=== PATIENT | female | born 1935 | race Caucasian/White ===

== ENCOUNTER 2022-12-04 23:49 | Inpatient (IN) | payer MEDICARE, OTHER ==
[~2022-12-04] VITALS: Ht 144.8 cm; Wt 49.9 kg
[2022-12-05] MEDS ORDERED: METO25TA4 PO (10:53)
[2022-12-05] MEDS ORDERED: LOSA100T31 PO (10:53)
[2022-12-05] MEDS ORDERED: METF-440 PO (10:53)
[2022-12-05] MEDS ORDERED: DEXL60CA3 PO (10:53)
[2022-12-05] MEDS ORDERED: APIX2.5T PO (10:53)
[2022-12-05] MEDS ORDERED: BLOOD SUGAR DIAGNOSTIC 1 EACH STRIP IN ONE (15:00)
[2022-12-05] MEDS ORDERED: MAG HYDROX/AL HYDROX/SIMETH 30 ML UDC PO PRN (15:00)
[2022-12-05] MEDS ORDERED: clonazePAM 0.5 MG TABLET PO PRN (15:00)
[2022-12-05] MEDS ORDERED: ACETAMINOPHEN 325 MG TABLET PO PRN (15:00)
[2022-12-05] MEDS ORDERED: MAGNESIUM HYDROXIDE 30 ML UDC PO PRN (15:00)
[2022-12-05] MEDS ORDERED: FOLI0.4T6 PO (15:46)
[2022-12-05] MEDS ORDERED: DONE5TAB34 PO (15:46)
[2022-12-05] MEDS ORDERED: NAPR-1009 PO (15:46)
[2022-12-05 16:00] VITALS: BP 156/77
--- NOTE | 2022-12-05 16:39 | NUR ---
Pt BS 263 ,LEFT MESSAGE FOR ABEL HO .
[2022-12-05] MEDS ORDERED: DEXTROSE 50%-WATER 50 ML DISP.SYRIN IV PRN (18:30)
[2022-12-05 19:00] VITALS: BP 148/76
--- NOTE | 2022-12-05 19:12 | NUR ---
Pt BS 263 ,LEFT MESSAGE FOR HARSHIL HO .
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
[2022-12-05 20:38] VITALS: BP 148/76
[2022-12-05 21:07] LABS: CHOLESTEROL 183 mg/dL (<200); HDL CHOLESTEROL 79 mg/dL (40-60); LDL 87 mg/dL (0-99); TRIGLYCERIDES 67 mg/dL (30-150)
[2022-12-05] MEDS: BLOOD SUGAR DIAGNOSTIC 1 EACH STRIP IN SCH (22:04)
[2022-12-05] MEDS: INSULIN REGULAR, HUMAN 100 UNIT/ML 3 ML VIAL SQ PRN (22:16)
[2022-12-06] MEDS: PANTOPRAZOLE 40 MG TABLET.DR PO SCH (07:44)
[2022-12-06] MEDS: BLOOD SUGAR DIAGNOSTIC 1 EACH STRIP IN SCH ×4 (07:45→21:33)
[2022-12-06] MEDS: INSULIN REGULAR, HUMAN 100 UNIT/ML 3 ML VIAL SQ PRN ×5 (07:47→21:39)
[2022-12-06 08:00] VITALS: BP 138/65
[2022-12-06 08:15] LABS: ALBUMIN 2.6 g/dL (3.4-5.0); BILIRUBIN,TOTAL 0.2 mg/dL (0.2-1.0); CALCIUM, SERUM 8.9 mg/dL (8.5-10.1); CREATININE 0.8 mg/dL (0.6-1.3); POTASSIUM 3.5 mmol/L (3.5-5.1); TOTAL PROTEIN, SERUM 5.9 g/dL (6.4-8.2)
[2022-12-06] MEDS: DONEPEZIL 5 MG TABLET PO SCH (08:20)
[2022-12-06] MEDS: APIXABAN 2.5 MG TABLET PO SCH ×2 (08:20→16:41)
[2022-12-06 08:21] LABS: THYROID STIMULATING HORMONE 0.966 uIU/mL (0.358-3.74)
[2022-12-06] MEDS: FOLIC ACID 1 MG TABLET PO SCH (08:21)
[2022-12-06] MEDS: LOSARTAN POTASSIUM 50 MG TABLET PO SCH (08:21)
--- NOTE | 2022-12-06 08:49 | NUR ---
BS is 154 and pt., refused for 2 units of Regular Insulin. Pt. was explained on the importance and still refusing.
--- NOTE | 2022-12-06 10:10 | NUR ---
RN Notes: Received pt. awake in bed, Malian speaking, no distress and no agitation noted. Ate 25% for breakfast and compliant on meds. Pt. seen by Adolfo psychological anthropologist. Encouraged to verbalize feelings and encouraged to attend group activity. Needs attended and will continue to monitor for safety.
--- NOTE | 2022-12-06 11:15 | NUR ---
SHARAD Initial Discharge Plan: Patient currently resides at home alone located at [address] [place] [address]; ([phone]). SHARAD will contact pt's son Miles ([phone]) to gather collateral and discuss treatment plan. SHARAD will work with the MD, family, and treatment team.
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
--- NOTE | 2022-12-06 11:16 | NUR ---
Treatment Plan: Pt refused to sign treatment plan and was suspicious.
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
[2022-12-06 16:00] VITALS: BP 150/70
--- NOTE | 2022-12-06 19:26 | NUR ---
GPS APPLICATION SUPPORT DEVELOPER NOTE: RCVD IN BED , AWAKE , CALM AT THIS TIME, DENIES PAIN OR DISCOMFORT AT THIS TIME. BREATHING EVEN AND UNLABORED, NO S/SX OF RES. DISTRESS OR DISCOMFORT AT THIS TIME. WILL CONT TO MONITOR PT'S SAFETY AND ANTICIPATE NEEDS.
[2022-12-06 20:19] VITALS: BP 137/56
[2022-12-06] MEDS: OLANZAPINE 2.5 MG TABLET PO SCH (21:33)
--- NOTE | 2022-12-06 22:42 | NUR ---
GPS COPY DIRECTOR NOTE PT MED COMPLIANT, ACCU CHECK 2200: BS 150, REGULAR INSULIN GIVEN ORDERED, TOLERATED. PT DENIES ANY PAIN OR DISCOMFORT AT THIS TIME. WILL CONT TO MONITOR Q 15 MINS PT'S BEHAVIOR AND SAFETY AND WILL ANTICIPATE NEEDS, ORIENTED PT WITH USE OF CALL LIGHT FOR ANY NEEDS/ OR ASSISTANCE.
--- NOTE | 2022-12-07 00:25 | NUR ---
GPS AUTOCAD DRAFTSMAN NOTE PT SLEEPING, EASY TO AROUSE, BREATHING EVEN AND UNLABORED, SAFETY AND COMFORT MEASURES NOTED. WILL CONTINUE TO MONITOR Q 15 MINS PT'S BEHAVIOR AND SAFETY.
--- NOTE | 2022-12-07 03:16 | NUR ---
GPS ORACLE EBS DEVELOPER NOTE PT SLEEPING, EASY TO AROUSE, NO S/SX OF RESP.DISTRESS. CONT TO MONITOR Q15 MINS - BEHAVIOR AND SAFETY.
--- NOTE | 2022-12-07 06:05 | NUR ---
GPS MILK DELIVERY DRIVER NOTE PT STILL SLEEPING AT THIS TIME, EASY TO AROUSE. NO S/SX OF RESP.DISTRESS, PT ABLE TO MAKE HIS NEEDS KNOW, ABLE TO VERBALIZED NEEDS. TOLERATED HER MEDS DURING SHIFT. SAFETY MEASURES OBSERVED. WILL ENDORSE CONTINUITY OF CARE TO AM ONCOMING NURSE.
[2022-12-07] MEDS: BLOOD SUGAR DIAGNOSTIC 1 EACH STRIP IN SCH ×4 (07:36→21:32)
[2022-12-07 08:00] VITALS: BP 158/81
[2022-12-07] MEDS: INSULIN REGULAR, HUMAN 100 UNIT/ML 3 ML VIAL SQ PRN ×3 (08:06→16:40)
[2022-12-07] MEDS: LOSARTAN POTASSIUM 50 MG TABLET PO SCH (08:19)
[2022-12-07] MEDS: FOLIC ACID 1 MG TABLET PO SCH (08:19)
[2022-12-07] MEDS: DONEPEZIL 5 MG TABLET PO SCH (08:19)
[2022-12-07] MEDS: PANTOPRAZOLE 40 MG TABLET.DR PO SCH (08:19)
[2022-12-07] MEDS: APIXABAN 2.5 MG TABLET PO SCH ×2 (08:20→16:19)
--- NOTE | 2022-12-07 09:30 | NUR ---
RN Notes: Received pt. awake in bed, responsive to staffs and pleasant upon approached. Pt. ate 25% for breakfast and compliant on meds. BS is 162 and 3 units of Humulin R given. Encouraged to verbalize feelings and motivated to attend group activities. Pt. seen watching tv in the dining room. Needs attended and will continue to monitor for safety.
--- NOTE | 2022-12-07 10:30 | NUR ---
Notified Dr. Bray regarding the consult.
[2022-12-07 16:00] VITALS: BP 143/55
--- NOTE | 2022-12-07 19:55 | NUR ---
GPS PESTICIDE APPLICATOR NOTE: RECEIVED PT AWAKE .ALERT AND ORIENTED X2.BREATHIGN EVEN AND NON-LABORED.NO S/S OF ACUTE DISTRESS.NO VERBALIZED OF PAIN NOR DISCOMFORT AT THIS TIME. ALL NEEDS MET AND ANTICIPATED.WILL CONT TO MONITOR FOR SAFETY AND BEHAVIOR.
[2022-12-07 20:00] VITALS: BP 155/88
[2022-12-07] MEDS: OLANZAPINE 2.5 MG TABLET PO SCH (21:19)
[2022-12-07] MEDS: TEMAZEPAM 7.5 MG CAPSULE PO PRN (21:23)
[2022-12-08 08:00] VITALS: BP 147/77
[2022-12-08] MEDS: BLOOD SUGAR DIAGNOSTIC 1 EACH STRIP IN SCH ×4 (08:01→21:43)
[2022-12-08] MEDS: DONEPEZIL 5 MG TABLET PO SCH (08:35)
[2022-12-08] MEDS: FOLIC ACID 1 MG TABLET PO SCH (08:35)
[2022-12-08] MEDS: APIXABAN 2.5 MG TABLET PO SCH ×2 (08:35→17:06)
[2022-12-08] MEDS: PANTOPRAZOLE 40 MG TABLET.DR PO SCH (08:35)
[2022-12-08] MEDS: LOSARTAN POTASSIUM 50 MG TABLET PO SCH (08:36)
[2022-12-08] MEDS: INSULIN REGULAR, HUMAN 100 UNIT/ML 3 ML VIAL SQ PRN ×3 (08:53→21:47)
[2022-12-08 16:00] VITALS: BP 125/53
--- NOTE | 2022-12-08 18:12 | NUR ---
RN-NOTES PATIENT VISIBLE IN THE UNIT BUT STAYS IN HER ROOM MOST OF THE TIME DESPITE ENCOURAGEMENT TO ATTEND GROUPS A/O X2, GUARDED,CALM ,NO ACUTE DISTRESS NOTED. PATIENT PREFERS TO STAY IN THE ROOM AND REST. COMPLIANT WITH MEDICATIONS. AMBULATORY STEADY GAIT.ABLE TO MAKE NEEDS KNOWN TO THE STAFF. ALL NEEDS ATTENDED AND ANTICIPATED. WILL CONT. MONITORING FOR SAFETY AND BEHAVIOR. WILL ENDORSE TO INCOMING NURSE FOR THE CONTINUITY OF CARE.
--- NOTE | 2022-12-08 19:47 | NUR ---
GPS SURGICAL DENTAL ASSISTANT NOTE: RECEIVED PT IN BED RESTING QUIETLY AWAKE .ALERT AND ORIENTED X2.WITH CONFUSION.ABLE TO VERBALIZED NEEDS AND CONCERN.BREATHING EVEN AND NON-LABORED.NO S/S OF ACUTE DISTRESS.NO VERBALIZED OF PAIN NOR DISCOMFORT AT THIS TIME. RESIDENT IS COMPLIANT WITH MEDICATION AND COOPERATIVE WITH CARE.ALL NEEDS MET AND ANTICIPATED.WILL CONT TO MONITOR FOR SAFETY AND BEHAVIOR.
[2022-12-08 20:16] VITALS: BP 144/82
[2022-12-08] MEDS: OLANZAPINE 2.5 MG TABLET PO SCH (21:15)
[2022-12-09] MEDS: PANTOPRAZOLE 40 MG TABLET.DR PO SCH (07:57)
[2022-12-09] MEDS: BLOOD SUGAR DIAGNOSTIC 1 EACH STRIP IN SCH ×4 (07:57→21:28)
[2022-12-09 08:00] VITALS: BP 142/80
[2022-12-09] MEDS: APIXABAN 2.5 MG TABLET PO SCH ×2 (08:21→17:37)
[2022-12-09] MEDS: DONEPEZIL 5 MG TABLET PO SCH (08:21)
[2022-12-09] MEDS: FOLIC ACID 1 MG TABLET PO SCH (08:22)
[2022-12-09] MEDS: LOSARTAN POTASSIUM 50 MG TABLET PO SCH (08:29)
[2022-12-09] MEDS: INSULIN REGULAR, HUMAN 100 UNIT/ML 3 ML VIAL SQ PRN ×2 (09:41→18:49)
--- NOTE | 2022-12-09 11:09 | NUR ---
NURSE NOTE: PT HAVING YELLING OUTBURSTS. ANXIOUS AT THIS TIME, REQUESTED ATIVAN. ATIVAN PO ADMINISTERED ORDERED. WILL CONT TO MONITOR. Addendum: 12/09/22 at 1903 by LETTY RODRÍGUEZ RN WRONG PT
--- NOTE | 2022-12-09 12:00 | NUR ---
NURSE NOTE: PT CALM AT THIS TIME. ATIVAN EFFECTIVE. WILL CONT TO MONITOR. Addendum: 12/09/22 at 1917 by LETTY RODRÍGUEZ RN WRONG PT
[2022-12-09 16:00] VITALS: BP 123/80
[2022-12-09 20:22] VITALS: BP 123/80
--- NOTE | 2022-12-09 21:02 | NUR ---
RN NOTES RECEIVED PATIENT FROM RONI LAZCANO NURSE AT 2101 . WILL CONTINUE WITH PLAN OF CARE.
[2022-12-09] MEDS: OLANZAPINE 2.5 MG TABLET PO SCH (21:05)
[2022-12-09] MEDS: MENTHOL/CETYLPYRD (CEPACOL) 1 LOZ LOZENGE PO PRN (21:05)
[2022-12-10 08:00] VITALS: BP 112/64
[2022-12-10] MEDS: BLOOD SUGAR DIAGNOSTIC 1 EACH STRIP IN SCH ×4 (08:15→21:38)
[2022-12-10] MEDS: DONEPEZIL 5 MG TABLET PO SCH (08:15)
[2022-12-10] MEDS: PANTOPRAZOLE 40 MG TABLET.DR PO SCH (08:15)
[2022-12-10] MEDS: LOSARTAN POTASSIUM 50 MG TABLET PO SCH (08:15)
[2022-12-10] MEDS: FOLIC ACID 1 MG TABLET PO SCH (08:16)
[2022-12-10] MEDS: APIXABAN 2.5 MG TABLET PO SCH ×2 (08:17→17:20)
[2022-12-10] MEDS: INSULIN REGULAR, HUMAN 100 UNIT/ML 3 ML VIAL SQ PRN ×3 (08:17→22:17)
[2022-12-10] MEDS ORDERED: MENTHOL/CETYLPYRD (CEPACOL) 1 LOZ LOZENGE PO PRN (10:00)
--- NOTE | 2022-12-10 11:00 | NUR ---
NURSE NOTE: PT WENT DOWN TO RADIOLOGY FOR CT OF THE HEAD. PT GILLIAN WELL. WILL CONT TO MONITOR.
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
[2022-12-10 16:00] VITALS: BP 146/66
[2022-12-10] MEDS: MENTHOL/CETYLPYRD (CEPACOL) 1 LOZ LOZENGE PO PRN (17:20)
[2022-12-10 19:43] VITALS: BP 135/78
[2022-12-10] MEDS: OLANZAPINE 2.5 MG TABLET PO SCH (21:13)
--- NOTE | 2022-12-10 22:11 | NUR ---
RN NOTE PATIENT BLOOD GLUCOSE WAS 60MG/DL. SANDWICH AND ORANGE JUICE GIVEN. RECHECKED BLOOD SUGAR RESULTED TO 196MG/DL. [facility] NOTIFIED AND ORDERED TO HOLD THE DOSE FOR TONIGHT. CHARGE NURSE AWARE.
[2022-12-11 08:00] VITALS: BP 151/64
[2022-12-11] MEDS: BLOOD SUGAR DIAGNOSTIC 1 EACH STRIP IN SCH ×4 (08:00→21:35)
[2022-12-11] MEDS: PANTOPRAZOLE 40 MG TABLET.DR PO SCH (08:01)
[2022-12-11] MEDS: NAPROXEN 500 MG TABLET PO PRN (08:58)
[2022-12-11] MEDS: APIXABAN 2.5 MG TABLET PO SCH ×2 (08:59→16:16)
[2022-12-11] MEDS: LOSARTAN POTASSIUM 50 MG TABLET PO SCH (09:00)
[2022-12-11] MEDS: DONEPEZIL 5 MG TABLET PO SCH (09:00)
[2022-12-11] MEDS: FOLIC ACID 1 MG TABLET PO SCH (09:00)
--- NOTE | 2022-12-11 10:29 | NUR ---
Court Hearing: Patient's court hearing for 0590 was today and it was upheld for GD.
--- NOTE | 2022-12-11 10:30 | NUR ---
Court Notification: SW had notified pt's daughter Lore ([phone]) of 5250 hearing.
[2022-12-11] MEDS: INSULIN REGULAR, HUMAN 100 UNIT/ML 3 ML VIAL SQ PRN ×2 (11:56→16:56)
--- NOTE | 2022-12-11 15:23 | NUR ---
SHARAD SNF Referral: SHARAD sent clinicals to Ashlyn preston from [facility] for placement ([phone]). SHARAD sent H & P, progress notes, and medication list.
[2022-12-11 16:00] VITALS: BP 126/75
--- NOTE | 2022-12-11 18:41 | NUR ---
RAILROAD CAR LETTERER NOTES PATIENT IS RESTING IN HER ROOM, BREATHING EVEN AND UNLABORED WITH NO S/S OF DISTRESS. PATIENT IS ANXIOUS, PARANOID, MEDICATION COMPLIANT. ENCOURAGED PATIENT TO VERBALIZED ANY FEELING OR CONCERN. PATIENT IS SET THAT SHE IS BEING DISCHARGED TOMORROW. INFORMED PATIENT HER HOLD DOES NOT END TOMORROW AND SHE WILL STILL BE HERE. PATIENT KEPT CALLING HER SON AND INFORMING HIM SHE WAS GOING TO BE DISCHARGED IN THE MORNING. PATIENT DENIES SI/HI AND AUDITORY/VISUAL HALLUCINATIONS AT THIS TIME. WILL ENDORSE TO EXECUTIVE CHEF ASSISTANT NURSE
[2022-12-11 20:03] VITALS: BP 138/63
[2022-12-11] MEDS: OLANZAPINE 2.5 MG TABLET PO SCH (21:16)
[2022-12-12 08:00] VITALS: BP 129/53
[2022-12-12] MEDS: BLOOD SUGAR DIAGNOSTIC 1 EACH STRIP IN SCH ×4 (08:19→23:00)
[2022-12-12] MEDS: NAPROXEN 500 MG TABLET PO PRN (08:20)
[2022-12-12] MEDS: PANTOPRAZOLE 40 MG TABLET.DR PO SCH (08:20)
[2022-12-12] MEDS: LOSARTAN POTASSIUM 50 MG TABLET PO SCH (08:21)
[2022-12-12] MEDS: FOLIC ACID 1 MG TABLET PO SCH (08:21)
[2022-12-12] MEDS: APIXABAN 2.5 MG TABLET PO SCH ×2 (08:22→16:45)
[2022-12-12] MEDS: DONEPEZIL 5 MG TABLET PO SCH (08:22)
--- NOTE | 2022-12-12 08:55 | NUR ---
SNF Contact: SW received a call from Ashlyn preston from [facility] for placement ([phone]) who stated pt is accepted.
[2022-12-12 16:00] VITALS: BP 150/90
[2022-12-12] MEDS: INSULIN REGULAR, HUMAN 100 UNIT/ML 3 ML VIAL SQ PRN ×2 (16:46→23:00)
[2022-12-12 20:52] VITALS: BP 158/66
[2022-12-12] MEDS: OLANZAPINE 2.5 MG TABLET PO SCH (21:14)
[2022-12-13] MEDS: MENTHOL/CETYLPYRD (CEPACOL) 1 LOZ LOZENGE PO PRN (03:13)
--- NOTE | 2022-12-13 07:35 | NUR ---
RN NOTES PATIENT IS RESTING IN HER ROOM A/OX2 , BREATHING EVEN AND UNLABORED WITH NO S/S OF DISTRESS. NO FURTHER COMPLAINS OF DISCOMFORT OR PAIN AT THIS TIME, ENCOURAGED PATIENT TO VERBALIZED ANY FEELING OR CONCERN. SAFETY MEASURES INITIATED. WILL MONITOR.
[2022-12-13 08:00] VITALS: BP 99/60
[2022-12-13] MEDS: BLOOD SUGAR DIAGNOSTIC 1 EACH STRIP IN SCH ×4 (08:02→21:35)
[2022-12-13] MEDS: INSULIN REGULAR, HUMAN 100 UNIT/ML 3 ML VIAL SQ PRN ×4 (08:13→21:41)
[2022-12-13] MEDS: PANTOPRAZOLE 40 MG TABLET.DR PO SCH (08:26)
[2022-12-13] MEDS: DONEPEZIL 5 MG TABLET PO SCH (09:04)
[2022-12-13] MEDS: FOLIC ACID 1 MG TABLET PO SCH (09:04)
[2022-12-13] MEDS: LOSARTAN POTASSIUM 50 MG TABLET PO SCH (09:04)
[2022-12-13] MEDS: APIXABAN 2.5 MG TABLET PO SCH ×2 (09:21→17:05)
--- NOTE | 2022-12-13 09:29 | NUR ---
SW Family Contact: SW attempted to contact pt's daughter Lore ([phone]) and left a detailed voicemail of accepting facility, [facility].
--- NOTE | 2022-12-13 10:51 | NUR ---
SHARAD Family Contact: SW attempted to contact pt's daughter Lore ([phone]) and was agreeable of [facility].
[2022-12-13 11:11] VITALS: BP 138/78
--- NOTE | 2022-12-13 11:13 | NUR ---
RN NOTES PATIENT HAD AN EPISODE OF UNRESPONSIVE WHILE AT ACTIVITY ROOM AROUND 1045, SHE WAS PALE IN APPEARANCE AND UNABLE TO RESPONSE TO VERBAL STIMULI. CALLED RAPID RESPONSE TEAM RIGHT AWAY FOR FURTHER MANAGEMENT. VITALS WERE TAKEN, ARE FOLLOWS BP-138/78 VT-97 SPO2-100% BLOOD SUGAR WAS 198. PATIENT WAS BACK TO HER BASELINE AFTER AROUND 5-10MINUTES. WILL CHECK AGAIN FROM TIME TO TIME. BRYN MAGAÑA RN CORRECTIONS MADE AWARE, AWAITS FOR FURTHER ORDERS. TO MONITOR.
--- NOTE | 2022-12-13 13:30 | NUR ---
OCHOA NOTES BLOOD SUGAR RECHECKED WAS 174, ADMINISTERED INSULIN ORDERED AND ADVISED BY GÓMEZ DIA, NO ADVERSE REACTION NOTED. WILL MONITOR. Addendum: 12/13/22 at 1600 by STEVEN POWERS RN BLOOD SUGAR WAS 234, NOT 174.
[2022-12-13 16:00] VITALS: BP 116/62
--- NOTE | 2022-12-13 16:02 | NUR ---
RN NOTES PATIENT AT DINING ROOM, DENIES ANY PAIN OR DISCOMFORT, NO UNUSUAL BEHAVIOR OR CHANGE IN STATUS OF THIS MOMENT. ADVISED PATIENT TO COLLECT URINE ORDERED. WILL MONITOR.
[2022-12-13 16:44] LABS: BILIRUBIN,URINE NEGATIVE (NEGATIVE); COLOR,URINE YELLOW (YELLOW); LEUKOCYTE ESTERASE ,URINE NEGATIVE (NEGATIVE); NITRITE, URINE NEGATIVE (NEGATIVE); PH,URINE 5.5 (5.0-8.0); PROTEIN,URINE NEGATIVE (NEGATIVE); UGLUCOSE 2+ mg/dL (NEGATIVE); UROBILINOGEN,URINE 0.2 EU/dL (0.2)
[2022-12-13 16:55] LABS: BACTERIA,URINE None seen /HPF (None Seen); RBC,URINE 0-2 /HPF (0-2); WBC,URINE 0-2 /HPF (0-3)
--- NOTE | 2022-12-13 18:19 | NUR ---
RN NOTES PATIENT IN DINING ROOM AT THIS TIME, A/OX2. BREATHING EVEN AND UNLABORED WITH NO S/S OF DISTRESS. NO FURTHER COMPLAINS OF DISCOMFORT OR PAIN, SAFETY MEASURES IMPLEMENTED. ENDORSED TO NIGHT NURSE FOR CONTINUITY OF CARE.
--- NOTE | 2022-12-13 18:32 | NUR ---
RN NOTES URINE SAMPLE COLLECTED, NOTIFIED LAB FOR TOW TRUCK DRIVER. WILL MONITOR
[2022-12-13 20:00] VITALS: BP_SYST 128; BP_SYST 138; BP_DIAS 58
[2022-12-13] MEDS: OLANZAPINE 2.5 MG TABLET PO SCH (21:37)
[2022-12-13] MEDS: TEMAZEPAM 7.5 MG CAPSULE PO PRN (23:10)
--- NOTE | 2022-12-14 03:39 | NUR ---
PRN sleep aid administered for insomnia with good result.
[2022-12-14 06:18] LABS: BASOPHILS % (AUTO) 0.4 % (0.0-2.0); EOSINOPHILS % (AUTO) 1.6 % (0.0-6.0); HEMATOCRIT 36 % (33-45); HEMOGLOBIN 11.4 g/dL (11.5-14.8); LYMPHOCYTES # (AUTO) 1.6 K/uL (0.8-4.8); LYMPHOCYTES % (AUTO) 25.1 % (20.0-44.0); MEAN CORPUSCULAR HGB CONC 32 g/dl (31.0-36.0); MEAN CORPUSCULAR VOLUME 80 fL (82-100); MONOCYTES # (AUTO) 0.7 K/uL (0.1-1.30); MONOCYTES % (AUTO) 11.6 % (2.0-12.0); NEUTROPHILS % (AUTO) 61.3 % (43.0-81.0); PLATELET COUNT (AUTO) 315 K/uL (150-450); RED BLOOD CELL COUNT(AUTO) 4.44 MIL/uL (4.0-5.2); WHITE BLOOD COUNT (AUTO) 6.5 K/uL (4.3-11.0)
[2022-12-14 07:09] LABS: ALANINE AMINOTRANSFERASE 17 U/L (12-78); ALBUMIN 2.4 g/dL (3.4-5.0); ALKALINE PHOSPHATASE 68 U/L (46-116); ASPARTATE AMINOTRANSFERASE 35 U/L (15-37); BILIRUBIN,TOTAL 0.2 mg/dL (0.2-1.0); CALCIUM, SERUM 8.3 mg/dL (8.5-10.1); CARBON DIOXIDE 26 mmol/L (21-32); CHLORIDE 99 mmol/L (98-107); CREATININE 1.1 mg/dL (0.6-1.3); GLUCOSE 120 mg/dL (74-106); MAGNESIUM 1.9 mg/dL (1.8-2.4); PHOSPHORUS 2.9 mg/dL (2.5-4.9); POTASSIUM 3.6 mmol/L (3.5-5.1); SODIUM SERUM 133 mmol/L (136-145); TOTAL PROTEIN, SERUM 5.5 g/dL (6.4-8.2); UREA NITROGEN, BLOOD 19 mg/dL (7-18)
[2022-12-14] MEDS: BLOOD SUGAR DIAGNOSTIC 1 EACH STRIP IN SCH ×4 (07:35→21:27)
[2022-12-14] MEDS: PANTOPRAZOLE 40 MG TABLET.DR PO SCH (07:35)
[2022-12-14 08:00] VITALS: BP 116/71
[2022-12-14] MEDS: LOSARTAN POTASSIUM 50 MG TABLET PO SCH (08:02)
[2022-12-14] MEDS: DONEPEZIL 5 MG TABLET PO SCH (08:02)
[2022-12-14] MEDS: FOLIC ACID 1 MG TABLET PO SCH (08:03)
[2022-12-14] MEDS: APIXABAN 2.5 MG TABLET PO SCH ×2 (08:06→16:30)
--- NOTE | 2022-12-14 09:56 | NUR ---
Dr. Clifton in the unit and ordered CT of the head without contrast and U/A.
[2022-12-14] MEDS: INSULIN REGULAR, HUMAN 100 UNIT/ML 3 ML VIAL SQ PRN ×3 (11:55→21:27)
[2022-12-14 16:00] VITALS: BP 125/73
--- NOTE | 2022-12-14 17:39 | NUR ---
Dr. Clifton made aware of the CT of the head result and no new order.
--- NOTE | 2022-12-14 19:00 | NUR ---
RN notes Received Pt in the hallway talking with her roommate. Pt is alert and orientedX2, calm, cooperative and compliant with care and meds. Pt speaks East Timorese and able to make needs known. On room air. No SOB. No S/S of distress noted. Pt denies SI/HI at this time. Reality orientation provided. Snacks is offered. Safety precautions is maintained. Will continue to monitor Q 15 mins checks for safety and behavior.
[2022-12-14 20:00] VITALS: BP 138/69
[2022-12-14 20:35] LABS: BILIRUBIN,URINE NEGATIVE (NEGATIVE); COLOR,URINE YELLOW (YELLOW); LEUKOCYTE ESTERASE ,URINE NEGATIVE (NEGATIVE); NITRITE, URINE NEGATIVE (NEGATIVE); PROTEIN,URINE NEGATIVE (NEGATIVE); UGLUCOSE NEGATIVE (NEGATIVE); UROBILINOGEN,URINE 0.2 EU/dL (0.2)
[2022-12-14] MEDS: OLANZAPINE 2.5 MG TABLET PO SCH (21:30)
[2022-12-15] MEDS: BLOOD SUGAR DIAGNOSTIC 1 EACH STRIP IN SCH ×4 (07:39→21:52)
[2022-12-15] MEDS: PANTOPRAZOLE 40 MG TABLET.DR PO SCH (07:52)
[2022-12-15 08:00] VITALS: BP 139/81
[2022-12-15] MEDS: DONEPEZIL 5 MG TABLET PO SCH (08:32)
[2022-12-15] MEDS: FOLIC ACID 1 MG TABLET PO SCH (08:32)
[2022-12-15] MEDS: APIXABAN 2.5 MG TABLET PO SCH ×2 (08:32→16:29)
[2022-12-15] MEDS: LOSARTAN POTASSIUM 50 MG TABLET PO SCH (08:33)
[2022-12-15] MEDS: INSULIN REGULAR, HUMAN 100 UNIT/ML 3 ML VIAL SQ PRN ×4 (08:35→21:47)
[2022-12-15 16:00] VITALS: BP 101/60
--- NOTE | 2022-12-15 18:26 | NUR ---
RN-NOTES PATIENT VISIBLE IN THE UNIT ATTENDED GROUPS A/O X2, GUARDED,CALM ,NO ACUTE DISTRESS NOTED. COMPLIANT WITH MEDICATIONS. AMBULATORY STEADY GAIT.ABLE TO MAKE NEEDS KNOWN TO THE STAFF. ALL NEEDS ATTENDED AND ANTICIPATED. WILL CONT. MONITORING FOR SAFETY AND BEHAVIOR. WILL ENDORSE TO INCOMING NURSE FOR THE CONTINUITY OF CARE.
--- NOTE | 2022-12-15 19:00 | NUR ---
RN notes Received Pt in the bed laying comfortably. Pt is alert and orientedX2, calm, cooperative and compliant with care and meds. Pt speaks German and able to make needs known. On room air. No SOB. No S/S of distress noted. Pt denies SI/HI at this time. Reality orientation provided. Ambulates with a steady gait. Snacks is offered and provided. Safety precautions is maintained. Will continue to monitor Q 15 mins checks for safety and behavior.
[2022-12-15 20:00] VITALS: BP 132/74
[2022-12-15] MEDS: OLANZAPINE 2.5 MG TABLET PO SCH (21:37)
--- NOTE | 2022-12-15 21:47 | NUR ---
RN notes Pt's blood sugar 135. Pt stated " No insulina miha!" Explained risks and benefits. Pt keep refusing. Snacks is provided.
--- NOTE | 2022-12-16 07:30 | NUR ---
PT RECEIVED RESTING COMFORTABLY IN BED. NO S/S OR C/O PAIN OR DISTRESS NOTED. SIDE RAILS UP X2. WILL CONTINUE PLAN OF CARE
[2022-12-16 08:00] VITALS: BP 137/77
[2022-12-16] MEDS: LOSARTAN POTASSIUM 50 MG TABLET PO SCH (08:47)
[2022-12-16] MEDS: DONEPEZIL 5 MG TABLET PO SCH (08:47)
[2022-12-16] MEDS: PANTOPRAZOLE 40 MG TABLET.DR PO SCH ×2 (08:47→08:52)
[2022-12-16] MEDS: APIXABAN 2.5 MG TABLET PO SCH ×2 (08:49→16:15)
[2022-12-16] MEDS: FOLIC ACID 1 MG TABLET PO SCH (08:52)
[2022-12-16] MEDS: BLOOD SUGAR DIAGNOSTIC 1 EACH STRIP IN SCH ×4 (08:54→21:28)
[2022-12-16] MEDS: INSULIN REGULAR, HUMAN 100 UNIT/ML 3 ML VIAL SQ PRN ×2 (10:07→17:34)
[2022-12-16 16:00] VITALS: BP 111/62
[2022-12-16 20:24] VITALS: BP 126/58
[2022-12-16] MEDS: OLANZAPINE 2.5 MG TABLET PO SCH (21:21)
--- NOTE | 2022-12-16 22:30 | NUR ---
RN NOTE PATIENT BLOOD GLUCOSE WAS 64MG/DL. SANDWICH AND ORANGE JUICE GIVEN. RECHECKED BLOOD SUGAR RESULTED TO 144MG/DL. CARTON FORMING MACHINE OPERATOR DERIAN NOTIFIED AND ORDERED TO HOLD THE DOSE FOR TONIGHT. CHARGE NURSE AWARE.
[2022-12-17 08:00] VITALS: BP 150/56
[2022-12-17] MEDS: BLOOD SUGAR DIAGNOSTIC 1 EACH STRIP IN SCH ×2 (08:26→11:44)
[2022-12-17] MEDS: INSULIN REGULAR, HUMAN 100 UNIT/ML 3 ML VIAL SQ PRN ×2 (08:29→11:49)
--- NOTE | 2022-12-17 08:33 | NUR ---
SW Discharge Note: Patient will be discharged to [facility] [address] [place] [address] ([phone]). Please arrange ambulance transportation at 1PM. Spoke with Naya, Admin Coordinator at the facility who states they are ready to accept the patient today. Patients daughter Lore ([phone]) is aware and agreeable. Patient is alert and oriented x2, is unable to plan for self-care at this time, however, is willing to accept care at [facility]. Patient denies any suicidal or homicidal ideation. Patient will follow-up at the facility with Dr. Jaime (psychiatrist) [address] [place] [address] ([phone]) (Glass Washer) Dr. Whitney [address] [facility] [address], [place] [address]; ([phone]). Patient presents with euthymic mood and congruent affect.
[2022-12-17] MEDS: DONEPEZIL 5 MG TABLET PO SCH (09:38)
[2022-12-17] MEDS: LOSARTAN POTASSIUM 50 MG TABLET PO SCH (09:38)
[2022-12-17] MEDS: FOLIC ACID 1 MG TABLET PO SCH (09:38)
[2022-12-17] MEDS: APIXABAN 2.5 MG TABLET PO SCH (09:40)
--- NOTE | 2022-12-17 13:40 | NUR ---
RN NOTE PT NOTED WITH ELEVATED BP AT 168/[address] BRYN MAGAÑA AND MADE HIM AWARE OF PT'S BP AND PT CURRENTLY DOES NOT HAVE A PRN BP MEDICATIONS FOR MANAGEMENT. DR. BRYN MAGAÑA ORDERED TO GIVE PT HYDRALAZINE 25MG 1 TAB PO X ONE TIME DOSE ONLY. ORDERS CARRIED OUT.
[2022-12-17 13:48] VITALS: BP 168/96
--- NOTE | 2022-12-17 13:50 | NUR ---
RN NOTE HYDRALAZINE 25MG 1 TAB PO ADMINISTERED ORDERED X ONE TIME DOSE FOR HER ELEVATED BP OF 168/96. WILL MONITOR AND REASSESS PT.
[2022-12-17] MEDS ORDERED: hydrALAZINE HCL 25 MG TABLET PO ONE (14:00)
--- NOTE | 2022-12-17 14:03 | NUR ---
GPS SIGNAL INTELLIGENCE ANALYST NOTE PT DISCHARGED TO [facility] IN STABLE CONDITION. PT A/O X2-3, CONFUSED AND FORGETFUL. REORIENTED AND REDIRECTED PT NEEDED. PT DENIES VISUAL/AUDITORY HALLUCINATIONS. PT DENIES SUICIDAL OR HOMICIDAL IDEATION. PT IS ON ROOM AIR, TOLERATING WELL. NO SOB NOTED. NOT IN ANY SIGN OF RESPIRATORY DISTRESS. VITAL SIGNS TAKEN, STABLE, AND RECORDED. PT REFUSED BODY ASSESSMENTS AND PHOTOGRAPHS OF SKIN ISSUES. ALL BELONGINGS ACCOUNTED FOR. DISCHARGED INSTRUCTIONS AND HEALTH TEACHINGS EXPLAINED TO THE PT AND REINFORCEMENT OF DISCHARGED INSTRUCTIONS AND HEALTH TEACHINGS NEEDED. REPORT GIVEN EARLIER TO OCHOA MALAGON OF [facility]. REASSESSED PT'S BP AFTER ADMINISTERING THE HYDRALAZINE MEDICATION ORDERED AND IT'S EFFECTIVE. PT'S CURRENT BP IS 150/69. PT LEFT THE UNIT AT 1400 ACCOMPANIED BY 3 DIRECTOR OF VIDEO ANALYTICS VIA GURNEY. CHAN AND CHARGED NURSE AWARE OF DISCHARGED.
== END 2022-12-17 13:57 | DRG 885 ==
LOC: UNDOADMIN 23:49 → GPS 23:49
PROVIDERS: ADMIT Psychiatry & Neurology Psychiatry
DX: F29 Unspecified psychosis not due to a substance or known physiological condition (principal); F02.818 Dementia in other diseases classified elsewhere, unspecified severity, with other behavioral disturbance; D68.59 Other primary thrombophilia; G30.9 Alzheimer's disease, unspecified; I10 Essential (primary) hypertension; I48.91 Unspecified atrial fibrillation; Z79.01 Long term (current) use of anticoagulants; J02.9 Acute pharyngitis, unspecified; K21.9 Gastro-esophageal reflux disease without esophagitis; R55 Syncope and collapse; Z20.822 Contact with and (suspected) exposure to COVID-19
CPT/HCPCS: 36415; 70450-TC; 80053-TC; 80061-TC; 81001; 82607-TC; 82962-TC; 83735-TC; 83921; 84100-TC; 84443-TC; 85025-TC; 86403-TC; 87081-TC; 97116-TC; 97530-TC; J1815